=== PATIENT | male | born 1995 | race Caucasian/White ===

== ENCOUNTER 2018-12-21 09:17 | Emergency (ER) | payer OTHER ==
[2018-12-21] MEDS ORDERED: Lidocaine 1% MPF ** 5 ML VIAL IM ONE (10:16)
[2018-12-21] MEDS ORDERED: cefTRIAXone VIAL(*) 250 MG VIAL IM ONE (10:16)
[2018-12-21] MEDS ORDERED: Azithromycin TAB* 250 MG PO ONE (10:16)
--- NOTE | 2018-12-21 10:24 | UC ---
Complaint Male HPI - HPI Summary HPI Summary: Patient is a 23-year-old male who presents to the urgent care with chief complaint of having dysuria, urinary frequency. Patient reports that he is sexually active in the last couple weeks. Male with male sex. Patient has no history of STDs. He is taking prophylaxis for HIV therefore he doesn't want to be tested for HIV. He wants to be tested for syphilis. He doesn't have any physicians for his genital area. He denies any penile discharge, denies any pain, denies any testicular pain. He has no other complaints - History of Current Complaint Chief Complaint: UCGU Stated Complaint: URINARY ISSUE Time Seen by Provider: 12/21/18 09:38 Hx Obtained From: Patient Onset/Duration: Gradual Onset Timing: Intermittent Severity Initially: Mild Severity Currently: Mild Pain Intensity: 0 - Allergies/Home Medications Allergies/Adverse Reactions: Allergies Allergy/AdvReac Type Severity Reaction Status Date / Time No Known Allergies Allergy Verified 12/21/18 09:34 Home Medications: Home Medications Tenofovir/Emtricitab 200/300 * [Truvada 200/300 mg*] 1 tab PO DAILY 12/21/18 [ History Confirmed 12/21/18] PMH/Surg Hx/FS Hx/Imm Hx Previously Healthy: Yes - Surgical History Surgical History: None - Family History Known Family History: Positive: Hypertension, Diabetes - Social History Alcohol Use: Weekly Substance Use Type: Marijuana Smoking Status (MU): Never Smoked Tobacco Review of Systems All Other Systems Reviewed And Are Negative: Yes Constitutional: Positive: Negative Skin: Positive: Negative Eyes: Positive: Negative ENT: Positive: Negative Respiratory: Positive: Negative Cardiovascular: Positive: Negative Gastrointestinal: Positive: Negative Genitourinary: Positive: Dysuria, Urgency Motor: Positive: Negative Neurovascular: Positive: Negative Musculoskeletal: Positive: Negative Neurological: Positive: Negative Psychological: Positive: Negative Is Patient Immunocompromised?: No Physical Exam - Summary Physical Exam Summary: VITAL SIGNS: Reviewed. GENERAL: Patient is a well developed and nourished male who is lying comfortably in the stretcher. Patient is not in any acute respiratory distress. HEAD AND FACE: No signs of trauma. No ecchymosis, hematomas or skull depressions. No sinus tenderness. EYES: PERRLA, EOMI x 2, No injected conjunctiva, no nystagmus. EARS: Hearing grossly intact. Ear canals and tympanic membranes are within normal limits. MOUTH: Oropharynx within normal limits. NECK: Supple, trachea is midline, no adenopathy, no JVD, no carotid bruit, no c- spine tenderness, neck with full ROM. CHEST: Symmetric, no tenderness at palpation LUNGS: Clear to auscultation bilaterally. No wheezing or crackles. CVS: Regular rate and rhythm, S1 and S2 present, no murmurs or gallops appreciated. ABDOMEN: Soft, non-tender. No signs of distention. No rebound no guarding, and no masses palpated. Bowel sounds are normal. EXTREMITIES: FROM in all major joints, no edema, no cyanosis or clubbing. NEURO: Alert and oriented x 3. No acute neurological deficits. Speech is normal and follows commands. SKIN: Dry and warm : Circumcised penis, no penile discharge, both testicles are descended. No masses are appreciated. Positive cremasteric reflex. Triage Information Reviewed: Yes Appearance: Well-Appearing Vital Signs: Initial Vital Signs Temp 97.9 F 12/21/18 09:29 Pulse 59 12/21/18 09:29 Resp 18 12/21/18 09:29 BP 135/78 12/21/18 09:29 Pulse Ox 99 12/21/18 09:29 Vital Signs Reviewed: Yes Complaint Male Course/Dx - Course Course Of Treatment: Patient was to be treated for STDs for GC and chlamydia. We will send cultures however he wants to be treated first. The patient also requests syphilis testing. Therefore we will send blood for syphilis screen test. At this point the patient was given Rocephin 250 mg IM and azithromycin 1 g. Patient is discharged home with follow-up with primary care physician for test results. - Differential Dx/Diagnosis Provider Diagnosis: STD (sexually transmitted disease) Discharge ED - Sign-Out/Discharge Documenting (check all that apply): Patient Departure All imaging exams completed and their final reports reviewed: No Studies - Discharge Plan Condition: Stable Disposition: HOME Patient Education Materials: Sexually Transmitted Diseases (ED) Referrals: No Primary Care Phys,NOPCP [Primary Care Provider] - [facility] [place] [facility] [Outside] Additional Instructions: Patient was discharged home with follow-up with primary care physician. He was recommended to return to the urgent care or go to the emergency department if symptoms worsen. GC and chlamydia and syphilis screening tests were sent to the lab. - Billing Disposition and Condition Condition: STABLE Disposition: Home
[2018-12-22 12:51] LABS: Chlamydia trachomatis NAA Negative (Negative); Neisseria gonorrhoeae (GC) NAA Negative (Negative)
--- NOTE | 2018-12-25 16:06 | UC ---
- Progress Note Progress Note: Urine for chlamydia and gonorrhea was negative. Nursing staff will call the patient and informed of results. Course/Dx - Diagnoses Provider Diagnoses: STD (sexually transmitted disease) Discharge ED - Sign-Out/Discharge Documenting (check all that apply): Post-Discharge Follow Up All imaging exams completed and their final reports reviewed: No Studies - Discharge Plan Condition: Stable Disposition: HOME Patient Education Materials: Sexually Transmitted Diseases (ED) Referrals: [facility] [place] [facility] [Outside] No Primary Care Phys,NOPCP [Primary Care Provider] - Additional Instructions: Patient was discharged home with follow-up with primary care physician. He was recommended to return to the urgent care or go to the emergency department if symptoms worsen. GC and chlamydia and syphilis screening tests were sent to the lab. - Billing Disposition and Condition Condition: STABLE Disposition: Home
== END 2018-12-21 10:36 | disposition home or self-care (01) ==
LOC: UCEAST 09:17
DX: A64 Unspecified sexually transmitted disease (principal)
CPT/HCPCS: 36415; 81003; 86780; 87086; 87491; 87591; 96372; 99202; A9270-GY; G0463; J0696